=== PATIENT | female | born 1935 | race Caucasian/White ===

== ENCOUNTER 2020-11-17 17:47 | Emergency (ER) | payer OTHER ==
[2020-11-17] MEDS ORDERED: ONDANSETRON 4 MG/2 ML VIAL ONE (18:29)
[2020-11-17] MEDS ORDERED: FENTANYL CITR 100 MCG/2 ML ONE (18:49)
--- NOTE | 2020-11-17 18:54 | ER ---
Nurse's Notes [facility] Name: Leticia Browne Age: 85 yrs Sex: Female : 1935 Arrival Date: 11/17/2020 Time: 17:53 Bed 30 Private MD: Diagnosis: Humeral Neck Fracture Presentation: 11/17 18:10 Chief complaint: Patient states: Rt shoulder pain s/p fall no LOC. Coronavirus screen: tc5 Vaccine status: Patient reports receiving the 2nd dose of the covid vaccine. Ebola Screen: Patient negative for fever greater than or equal to 101.5 degrees Fahrenheit, and additional compatible Ebola Virus Disease symptoms Patient denies exposure to infectious person. Patient denies travel to an Ebola-affected area in the 21 days before illness onset. No symptoms or risks identified at this time. Risk Assessment: Do you want to hurt yourself or someone else? Patient reports no desire to harm self or others. Onset of symptoms was November 17, 2020 at 17:00. 18:10 Method Of Arrival: EMS tc5 18:10 Acuity: SANG 3 tc5 Triage Assessment: 18:13 General: Appears distressed, Behavior is cooperative, appropriate for age, anxious. tc5 Pain: Complains of pain in right arm Quality of pain is described as Pain began 1 hour ago. EENT: No deficits noted. Neuro: No deficits noted. Cardiovascular: bradycardic on tele.. Respiratory: No deficits noted. GI: No deficits noted. : No deficits noted. Derm: No deficits noted. Musculoskeletal: RUE, pt states she fell on the concrete floor onto her rt arm, denies LOC. Historical: - Allergies: 18:12 Sulfa (Sulfonamide Antibiotics); tc5 - PMHx: 18:12 Parkinson's disease; Alzheimer's disease; tc5 - Immunization history:: Adult Immunizations up to date, Client reports receiving the 2nd dose of the Covid vaccine, moderna. - Social history:: Smoking status: Patient denies any tobacco usage or history of. Assessment: 18:16 Reassessment: Patient appears in no apparent distress at this time. General: Appears tc5 distressed, Behavior is cooperative, appropriate for age, anxious. Pain: Complains of pain in right arm. Neuro: No deficits noted. Cardiovascular: No deficits noted. Respiratory: No deficits noted. GI: No deficits noted. : No deficits noted. Vital Signs: 18:10 BP 155 / 107; Pulse 48; Resp 16; Temp 98.0; Pulse Ox 100% ; Weight 68.04 kg; Height 5 tc5 ft. 7 in. (170.18 cm); Pain 6/10; 18:15 BP 163 / 122; Pulse 56; Resp 20; Pulse Ox 100% ; Pain 10/10; tc5 19:01 BP 138 / 82; Pulse 52; Resp 16; Temp 97.8(TE); Pulse Ox 99% on R/A; mh5 18:10 Body Mass Index 23.49 (68.04 kg, 170.18 cm) tc5 ED Course: 17:53 Patient arrived in ED. tr6 17:56 Malick Garcia PA is PHCP. [facility] 17:56 Dayan Wilkins MD is Attending Physician. reno 18:00 Anisa Dowling, JUSTICE is Primary Nurse. tc5 18:11 Triage completed. tc5 18:16 Patient pt holding arm close to body in natural position. tc5 18:24 Shoulder Right (2 View) XRAY In Process Unspecified. EDMS 18:33 Sling applied to right arm. mh5 18:42 Patient has correct armband on for positive identification. Placed in gown. Bed in low mh5 position. Call light in reach. Side rails up X2. Adult w/ patient. Warm blanket given. Pillow given. cycle counter on. Pulse ox on. NIBP on. 18:53 Dewey Kowalski MD is Referral Physician. [facility] Administered Medications: 18:09 Drug: Zofran (Ondansetron) 4 mg Route: IVP; Site: left antecubital; tc5 18:32 Drug: fentaNYL (PF) 50 mcg Route: IVP; Site: left antecubital; tc5 Outcome: 18:53 Discharge ordered by . [facility] 19:11 Patient left the ED. tc5 Signatures: Dispatcher [employer] EDMS Malick Garcia PA PA jmm Martinez, Maria 5 Jeni Dorsey RN RN tr6 Anisa Dowling RN RN tc5
--- NOTE | 2020-11-17 18:54 | EDPHYS ---
Physician Documentation [facility] Name: Leticia Browne Age: 85 yrs Sex: Female : 1935 Arrival Date: 11/17/2020 Time: 17:53 Bed 30 Private MD: ED Physician Dayan Wilkins HPI: 11/17 18:17 This 85 yrs old Female presents to ER via EMS with complaints of shoulder jmm pain. 18:17 The patient or guardian complains of an injury, pain. Onset: The symptoms/episode jmm began/occurred acutely, just prior to arrival. Modifying factors: the symptoms are alleviated by nothing. The symptoms are aggravated by movement. This is an 85-year-old female with a history of Parkinson's disease the presents emerged department after a fall which occurred just prior to arrival. Patient states she landed on her right side, denies hitting her head, does not take blood thinners. Deformity noted to the right shoulder.. Historical: - Allergies: 18:12 Sulfa (Sulfonamide Antibiotics); tc5 - PMHx: 18:12 Parkinson's disease; Alzheimer's disease; tc5 - Immunization history:: Adult Immunizations up to date, Client reports receiving the 2nd dose of the Covid vaccine, moderna. - Social history:: Smoking status: Patient denies any tobacco usage or history of. ROS: 18:17 Constitutional: Negative for fever, chills, and weight loss, Cardiovascular: Negative jmm for chest pain, palpitations, and edema, Respiratory: Negative for shortness of breath, cough, wheezing, and pleuritic chest pain. 18:17 MS/extremity: Positive for injury or acute deformity, pain. 18:17 All other systems are negative. Exam: 18:17 Constitutional: This is a well developed, well nourished patient who is awake, alert, jmm and in no acute distress. Head/Face: atraumatic. Eyes: EOMI, no conjunctival erythema appreciated ENT: Moist Mucus Membranes Neck: Trachea midline, Supple Chest/axilla: Normal chest wall appearance and motion. Cardiovascular: Regular rate and rhythm. No edema appreciated Respiratory: Normal respirations, no respiratory distress appreciated 18:17 Skin: General appearance color normal MS/ Extremity: Moves all extremities, no obvious deformities appreciated, no edema noted to the lower extremities Neuro: Awake and alert, normal gait Psych: Behavior is normal, Mood is normal, Patient is cooperative and pleasant 18:17 Musculoskeletal/extremity: ROM: painful rom. Vital Signs: 18:10 BP 155 / 107; Pulse 48; Resp 16; Temp 98.0; Pulse Ox 100% ; Weight 68.04 kg; Height 5 tc5 ft. 7 in. (170.18 cm); Pain 6/10; 18:15 BP 163 / 122; Pulse 56; Resp 20; Pulse Ox 100% ; Pain 10/10; tc5 19:01 BP 138 / 82; Pulse 52; Resp 16; Temp 97.8(TE); Pulse Ox 99% on R/A; mh5 18:10 Body Mass Index 23.49 (68.04 kg, 170.18 cm) tc5 MDM: 17:57 Patient medically screened. [facility] 11/17 17:56 Order name: Shoulder Right (2 View) XRAY [facility] 11/17 17:57 Order name: Saline Lock; Complete Time: 18:04 [facility] 11/17 18:20 Order name: Sling; Complete Time: 18:31 [facility] Administered Medications: 18:09 Drug: Zofran (Ondansetron) 4 mg Route: IVP; Site: left antecubital; tc5 18:32 Drug: fentaNYL (PF) 50 mcg Route: IVP; Site: left antecubital; tc5 Disposition Summary: 11/17/20 18:53 Discharge Ordered Location: Home [facility] Condition: Stable [facility] Diagnosis - Humeral Neck Fracture [facility] Followup: [facility] - With: Dewey Kowalski MD - When: 2 - 3 days - Reason: Recheck today's complaints, Continuance of care, Re-evaluation by your physician Discharge Instructions: - Discharge Summary Sheet [facility] - Humerus Fracture Treated With Immobilization [facility] Forms: - Medication Reconciliation Form [facility] - Thank You Letter [facility] - Antibiotic Education [facility] - Prescription Opioid Use [facility] Prescriptions: - Ultracet 37.5-325 mg Oral Tablet - take 1 tablet by ORAL route every 6 hours - for up to 5 days; do not exceed 8 jmm tablets per day.; 12 tablet; Refills: 0, Product Selection Permitted Addendum: 11/22/2020 04:36 Co-signature as Attending Physician, Dayan Wilkins MD PA/BRISKET PULLER's history reviewed, m a2 patient interviewed, and examined. I agree with assessment and care plan and confirm the diagnosis (es) above. Signatures: Dispatcher [employer] Malick Lopez PA PA jmm Alzahri, Mohammad, MD MD ma2 Anisa Dowling RN RN tc5
[2020-11-17 19:20] VITALS: BP 138/82; TEMP 97.8; O2SAT 99
--- NOTE | 2020-11-17 20:00 | RAD REPORT ---
EXAM DESCRIPTION: Shoulder Right 2 View - 11/17/2020 6:25 pm CLINICAL HISTORY: shoulder painafter fall COMPARISON: No comparisons TECHNIQUE: Internal and external rotation views of the right shoulder were obtained. FINDINGS: Transverse fracture is present at the surgical neck with impaction along the medial margin of the humeral shaft. No pathologic changes are seen. Humeral head is not dislocated. Moderate degen erative change seen at the AC joint with acromial humeral joint space narrowed. There is suspected ad ditional fracture line in the greater tuberosity. IMPRESSION: Proximal right humerus fracture as detailed superimposed on AC joint and acromion degene rative change.
== END 2020-11-17 19:11 | disposition home or self-care (01) ==
LOC: ER 17:47
DX: S42.211A Unspecified displaced fracture of surgical neck of right humerus, initial encounter for closed fracture (principal); W19.XXXA Unspecified fall, initial encounter; G20 Parkinson's disease; G30.9 Alzheimer's disease, unspecified; F02.80 Dementia in other diseases classified elsewhere, unspecified severity, without behavioral disturbance, psychotic disturbance, mood disturbance, and anxiety; Z88.2 Allergy status to sulfonamides
CPT/HCPCS: 73030; 96375; 96374; 99284; J3010; J2405